=== PATIENT | female | born 1975 | race African-American/Black ===

== ENCOUNTER 2016-04-26 16:34 | Emergency (ER) | payer SELFPAY ==
--- NOTE | 2016-04-26 17:31 | ER Document Report ---
ED Medical Screen (RME) - General Stated Complaint: VAGINAL PROBLEM Time seen by provider: 17:29 Mode of Arrival: Ambulatory Information source: Patient Notes: 40 yo female had something come out of her vagina at 4 pm when she was straining to have BM , Went back up when she went to urinate in ER. Physical Exam - Vital signs Vitals: Temp Pulse Resp BP Pulse Ox 98.3 F 106 H 20 148/71 H 98 04/26/16 17:25 04/26/16 17:25 04/26/16 17:25 04/26/16 17:25 04/26/16 17:25 Course - Vital Signs Vital signs: Temp Pulse Resp BP Pulse Ox 98.3 F 106 H 20 148/71 H 98 04/26/16 17:25 04/26/16 17:25 04/26/16 17:25 04/26/16 17:25 04/26/16 17:25
--- NOTE | 2016-04-26 21:09 | ER Document Report ---
ED GI/ - General Chief Complaint: Vaginal Bleeding Stated Complaint: VAGINAL PROBLEM Mode of Arrival: Ambulatory Notes: Patient is a 40-year-old female presents emergency Department complaining of a mass in her vagina. Patient states that at approximately 4:30 in the afternoon she was straining to go to the bathroom and when she wiped she felt something sticking out of her vagina. She is able to take a picture of it. She says it is there for about an hour when she showed up to the emergency department it had gone away the second tension to the bathroom. She states that when she first noticed that she was straining to have a bowel movement. His any pain any vaginal discharge. Last menstrual period was March 30. Patient is in a relationship with a female she denies any chance of being . Denies any past medical history except for uterine fibroids. [facility] was Dr. Jennifer Greenwood TRAVEL OUTSIDE OF THE [place] IN LAST 30 DAYS: No - Related Data Allergies/Adverse Reactions: codeine Adverse Reaction (Severe, Verified 04/26/16 21:51) VOMITING Past Medical History - General Information source: Patient - Social History Smoking Status: Current Every Day Smoker Chew tobacco use (# tins/day): No Frequency of alcohol use: Social Drug Abuse: None Family History: Reviewed & Not Pertinent Patient has homicidal ideation: No Pulmonary Medical History: Reports: Hx Asthma Renal/ Medical History: Denies: Hx Peritoneal Dialysis Surgical Hx: Negative - Immunizations Hx Diphtheria, Pertussis, Tetanus Vaccination: Yes Review of Systems - Review of Systems Constitutional: No symptoms reported EENT: No symptoms reported Cardiovascular: No symptoms reported Respiratory: No symptoms reported Gastrointestinal: No symptoms reported Genitourinary: See HPI Female Genitourinary: No symptoms reported Musculoskeletal: No symptoms reported Skin: No symptoms reported Hematologic/Lymphatic: No symptoms reported Neurological/Psychological: No symptoms reported Physical Exam - Vital signs Vitals: Temp Pulse Resp BP Pulse Ox 98.3 F 106 H 20 148/71 H 98 04/26/16 17:25 04/26/16 17:25 04/26/16 17:25 04/26/16 17:25 04/26/16 17:25 - Notes Notes: PHYSICAL EXAM GENERAL: Alert, interacts well. HEAD: Normocephalic, atraumatic. EYES: Pupils equal, round, and reactive to light. Extraocular movements intact. ENT: Oral mucosa moist, tongue midline. NECK: Full range of motion. Supple. Trachea midline. LUNGS: Clear to auscultation bilaterally, no wheezes, rales, or rhonchi. No respiratory distress. HEART: Regular rate and rhythm. No murmurs, gallops, or rubs. ABDOMEN: Soft, nondistended, nontender. No guarding, rebound, or rigidity.. Bowel sounds present in all 4 quadrants. FEMALE : Normal external exam. Evidence of mass prohibiting ability to visualize the cervix, predominantly in the 1-3 o'clock position. No lacerations , bruising or vesicles. Speculum exam evidence of firm mass prohibiting ability to visualize the cervix, predominantly in the 1-3 o'clock position.. No evidence of vaginal discharge with odor. Mild vaginal bleeding. Bimanual exam unble to reach cervix for cervical motion tenderness given palpation of mass. No adnexal mass or adnexal tenderness. EXTREMITIES: Moves all 4 extremities spontaneously. No edema, radial and dorsalis pedis pulses 2/4 bilaterally. No cyanosis. NEUROLOGICAL: Alert and oriented x3. Normal speech. PSYCH: Normal affect, normal mood. SKIN: Warm, dry, normal turgor. No rashes or lesions noted. Course - Re-evaluation Re-evalutation: 04/26/16 23:34 Patient is a 40-year-old female who presents emergency Department a mass protruding from her vagina that she noticed for the first time today when she was straining for bowel movement. Physical exams do reveal a concerning firm tissue within the vaginal vault including inability to examine the cervix which allowed us to refer her for an abdominal pelvic ultrasound. Discussion with radiologist reveal a 5.5 cm uterine fibroid as well as a 5.5 cm cervical fibroid which is protruding into the vaginal vault. At this time will recommend follow-up with [facility] for tissue biopsy and follow-up. Otherwise patient is stable for discharge Per [facility] protocol and guidelines, this case was discussed with supervising physician Dr. pardeep chavez prior to discharge - Vital Signs Vital signs: Temp Pulse Resp BP Pulse Ox 99.1 F 140 H 15 129/61 H 83 L 04/26/16 20:36 04/26/16 20:36 04/26/16 20:36 04/26/16 20:36 04/26/16 20:36 - Diagnostic Test Radiology reviewed: Image reviewed, Reports reviewed Discharge - Discharge Clinical Impression: Cervical mass Uterine fibroid Qualifiers: Uterine leiomyoma location: unspecified location Qualified Code(s): D25.9 - Leiomyoma of uterus, unspecified Condition: Good Disposition: HOME, SELF-CARE Additional Instructions: -Ultrasound and physical exam show evidence of uterine and cervical fibroids. This requires follow up with [facility] for tissue evaluation. Dr. Ricardo Rodriguez [address] [place] [phone] Please follow-up with an [facility] in the next 3-5 days Forms: Return to Work Referrals: DEBO SOMERS MD [ACTIVE STAFF] - Follow up in 3-5 days
[2016-04-27 00:32] VITALS: BP 139/67
== END 2016-04-26 23:50 | disposition home or self-care (01) ==
LOC: ER 16:34
DX: D25.9 Leiomyoma of uterus, unspecified (principal); F17.200 Nicotine dependence, unspecified, uncomplicated; J45.909 Unspecified asthma, uncomplicated
CPT/HCPCS: 76856; 99284